=== PATIENT | male | born 1980 | race Caucasian/White ===

== ENCOUNTER 2019-10-14 18:06 | Inpatient (IN) ==
[2019-10-14 18:37] LABS: Basophils % 0.1 %; Eosinophils % 0.1 %; Hematocrit 46.3 % (37.5-50.1); Hemoglobin 15.4 g/dL (12.9-16.9); Immature Granulocytes % 0.5 % (0-4); Lymphocytes # 1.7 K/mcL (0.6-4.6); Lymphocytes % 21.5 %; Mean Corpuscular HGB Conc 33.3 g/dL (31.6-35.5); Mean Corpuscular Hemoglobin 28.8 pg (28.0-33.3); Mean Corpuscular Volume 86.5 fL (83.0-100.0); Mean Platelet Volume 10.7 fL (9.4-12.4); Monocytes # 0.6 K/mcL (0.0-1.3); Monocytes % 7.7 %; Neutrophils # 5.4 K/mcL (1.6-8.9); Platelet Count 186 K/mcL (140-400); Red Blood Count 5.35 M/mcL (4.19-5.50); Red Cell Distribution Width 12.7 % (11.5-14.5); Segmented Neutrophils % 70.1 %; White Blood Count 7.7 K/mcL (4.3-11.1)
[2019-10-14 18:45] LABS: Amphetamine Screen,Urine Negative ng/mL (Cutoff=1000); Barbiturate Screen,Urine Negative ng/mL (Cutoff=200); Benzodiazepines Screen,Urine Negative ng/mL (Cutoff=200); Cannabinoid Screen,Urine Negative ng/mL (Cutoff = 50); Cocaine Screen,Urine Negative ng/mL (Cutoff= 300); Opiate Screen,Urine Negative ng/mL (Cutoff=300); Phencyclidine Screen,Urine Negative ng/mL (Cutoff=25)
[2019-10-14 18:55] LABS: Acetaminophen < 10 mcg/mL (10-20); BUN/Creatinine Ratio 9 (6-26); Blood Urea Nitrogen 8 mg/dL (6-20); Calcium 9.7 mg/dL (8.6-10.3); Carbon Dioxide 26 mEq/L (23-29); Chloride 105 mEq/L (98-107); Ethanol < 10 mg/dL (Less than 10); Glucose 101 mg/dL (70-105); Osmolality,Calculated 282 (280-300); Potassium 3.7 mEq/L (3.5-5.1); Salicylate < 2.5 mg/dL (15.0-30.0); Sodium 137 mEq/L (136-145); eGFR For African Americans > 60 (> 60); eGFR For Non-African Americans > 60 (> 60)
[2019-10-14] MEDS ORDERED: *HR* LORazepam 1 MG TABLET PO PRN (20:04)
[2019-10-14] MEDS ORDERED: haloperidoL 5 MG TABLET PO PRN (20:04)
[2019-10-14] MEDS ORDERED: *HR* LORazepam 2 MG/ML VIAL IM PRN (20:04)
[2019-10-14] MEDS ORDERED: Ibuprofen 400 MG TABLET PO PRN (20:04)
[2019-10-14] MEDS ORDERED: hydrOXYzine pamoate 25 MG CAPSULE PO PRN (20:04)
[2019-10-14] MEDS ORDERED: MOM Conc 10 ML UD.LIQ PO PRN (20:04)
[2019-10-14] MEDS ORDERED: Haloperidol Lactate 5 MG/ML VIAL IM PRN (20:04)
[2019-10-14] MEDS ORDERED: Mag Hydrox/Al Hydrox/Simeth 30 ML UDC PO PRN (20:04)
[2019-10-14] MEDS ORDERED: traZODone 50 MG TABLET PO PRN (20:04)
[2019-10-14] MEDS ORDERED: QUEtiapine Fumarate 300 MG TABLET PO SCH (22:30)
[2019-10-14] MEDS ORDERED: traZODone 50 MG TABLET PO SCH (22:30)
[2019-10-14] MEDS: Nicotine 2 MG GUM BC PRN (22:51)
[2019-10-15] MEDS: Nicotine 2 MG GUM BC PRN (13:14)
[2019-10-15] MEDS ORDERED: traZODone 50 MG TABLET PO SCH (21:00)
[2019-10-15] MEDS ORDERED: QUEtiapine Fumarate 100 MG TABLET PO SCH (21:00)
[2019-10-16 11:12] VITALS: BP 107/69
== END 2019-10-16 11:15 | disposition other institution (70) | DRG 885 ==
LOC: EMEROOARM 18:06 → 1ANU 20:02
PROVIDERS: ADMIT Psychiatry & Neurology Psychiatry; ATTEND Psychiatry & Neurology Psychiatry